=== PATIENT | male | born 1975 | race Asian ===

== ENCOUNTER 2021-04-25 08:28 | Emergency (ER) | payer OTHER ==
[2021-04-25] MEDS ORDERED: METHYLPREDNISOLONE 125 MG INJ ONE (09:33)
[2021-04-25] MEDS ORDERED: HYDROCODONE/CHLORPHEN 5 ML/OSYR ONE (09:34)
[2021-04-25] MEDS ORDERED: ALBUTEROL 2.5 MG/3 ML NEB SOL ONE (09:34)
[2021-04-25 09:48] LABS: Absolute Lymphocytes (CBC) 1.5 K/uL (0.7-4.9); Lymphocytes % 27.7 % (15.3-44.8); MPV 9.6 fL (7.6-11.3)
--- NOTE | 2021-04-25 09:57 | RAD REPORT ---
EXAM DESCRIPTION: RAD - Chest Pa And Lat (2 Views) - 04/25/2021 9:46 am CLINICAL HISTORY: COUGH COMPARISON: No comparisons FINDINGS: Lines: None. Lungs: No evidence of edema or pneumonia. Pleural: No significant pleural effusions or pneumothorax. Cardiac: The heart size is within normal limits. Bones: No acute fractures. Other: IMPRESSION: No acute cardiopulmonary disease.
[2021-04-25 10:04] LABS: BUN Blood Urea Nitrogen 6 mg/dL (7-18); Bicarbonate 29 mmol/L (21-32); Glucose Level 111 mg/dL (74-106); Sodium Level 140 mmol/L (136-145)
[2021-04-25 10:39] LABS: SARS-COV-2 RT PCR NEGATIVE (NEGATIVE)
--- NOTE | 2021-04-25 11:34 | ER ---
Nurse's Notes [facility] Name: Ashkan Ring Age: 45 yrs Sex: Male : 1975 Arrival Date: 04/25/2021 Time: 08:33 Bed 14 Private MD: Diagnosis: Cough;Respiratory syncytial virus as the cause of diseases classified elsewhere Presentation: 04/25 08:51 Chief complaint: Patient states: Cough for 2-3 months but has been getting worse over ww the past few days. Sore throat, sinus congestion, headache and fever for the past 3-4 days with diarrhea. Coronavirus screen: Vaccine status: Patient reports receiving the 2nd dose of the covid vaccine. Client denies travel out of the [place] in the last 14 days. Ebola Screen: Patient denies travel to an Ebola-affected area in the 21 days before illness onset. Initial Sepsis Screen: Does the patient meet any 2 criteria? No. Patient's initial sepsis screen is negative. Does the patient have a suspected source of infection? No. Patient's initial sepsis screen is negative. Risk Assessment: Do you want to hurt yourself or someone else? Patient reports no desire to harm self or others. Onset of symptoms is unknown. 08:51 Method Of Arrival: Ambulatory ww 08:51 Acuity: ERWIN 3 ww Triage Assessment: 08:53 General: Appears uncomfortable, Behavior is calm, cooperative. Pain: Complains of pain ww in uvula, left aspect of posterior pharynx and right aspect of posterior pharynx. EENT: Reports nasal congestion nasal discharge. Neuro: Level of Consciousness is awake, alert, obeys commands, Oriented to person, place, time, situation, Moves all extremities. Gait is steady, Speech is normal. Cardiovascular: Capillary refill Patient's skin is warm and dry. Respiratory: Reports cough that is Airway is patent Respiratory effort is even, unlabored, Respiratory pattern is regular, symmetrical. GI: Reports diarrhea. : No signs and/or symptoms were reported regarding the genitourinary system. Historical: - Allergies: 08:53 No Known Allergies; ww - Home Meds: 08:53 None [Active]; ww - PMHx: 08:53 None; ww - PSHx: 08:53 None; ww - Immunization history:: Adult Immunizations up to date. - Social history:: Smoking status: Patient denies any tobacco usage or history of. Screenin:55 Abuse screen: Denies threats or abuse. Denies injuries from another. Nutritional ww screening: No deficits noted. Tuberculosis screening: No symptoms or risk factors identified. Fall Risk None identified. Assessment: 08:54 General: Appears in no apparent distress. comfortable, well groomed, Behavior is calm, cb5 cooperative, appropriate for age. Pain: Denies pain. Neuro: No deficits noted. Level of Consciousness is awake, alert, obeys commands, Oriented to person, place, time, situation, Appropriate for age. Cardiovascular: No deficits noted. Reports None. Respiratory: No deficits noted. Respiratory: Reports cough that is patient stated he has been coughing on and off for two months, recently had covid 19, still coughing. Airway is patent Trachea midline Breath sounds are clear bilaterally. GI: No deficits noted. : No deficits noted. EENT: No deficits noted. Derm: No deficits noted. Musculoskeletal: No deficits noted. 10:15 Respiratory: Airway is patent Trachea midline Breath sounds are clear. cb5 10:54 Reassessment: Patient and/or family updated on plan of care and expected duration. Pain cb5 level reassessed. Vital Signs: 08:51 BP 128 / 86; Pulse 84; Resp 16; Temp 98.2; Pulse Ox 100% ; Weight 68.04 kg; Height 5 ww ft. 3 in. (160.02 cm); 11:10 BP 126 / 77; Pulse 82; Resp 16; Pulse Ox 100% ; Pain 0/10; cb5 12:10 BP 128 / 78; Pulse 80; Resp 16; Temp 98.6; Pulse Ox 99% ; Pain 0/10; cb5 08:51 Body Mass Index 26.57 (68.04 kg, 160.02 cm) ww ED Course: 08:33 Patient arrived in ED. ds1 08:52 Suman Dobbins NP is PHCP. pm1 08:52 Angelito Davis MD is Attending Physician. pm1 08:53 Imelda Bah, SAV is Primary Nurse. cb5 08:53 Triage completed. ww 08:53 Arm band placed on right wrist. ww 08:58 Bed in low position. Call light in reach. Side rails up X 1. cb5 08:58 No provider procedures requiring assistance completed. cb5 09:40 Inserted saline lock: 20 gauge in right antecubital area, using aseptic technique. dh4 Blood collected. 09:45 Chest Pa And Lat (2 Views) XRAY In Process Unspecified. EDMS 10:20 Strep Sent. ww 10:20 CBC with Diff Sent. ww 11:48 Notified Nurse Practitioner and/or Physician Recruiting Team Lead of a critical lab result(s), RSV ll1 positive. 12:22 IV discontinued. cb5 Administered Medications: 09:35 Drug: Tussionex Pennkinetic ER (chlorpheniramine-hydrocodone) Suspension 5 ml Route: PO;cb5 09:35 Drug: SOLU-Medrol (methylPrednisoLONE) 125 mg Route: IVP; Site: right antecubital; cb5 09:39 Drug: Albuterol 2.5 mg Route: Inhalation; cb5 Outcome: 11:34 Discharge ordered by MD. pm1 12:21 Discharged to home ambulatory. cb5 12:21 Condition: stable 12:21 Discharge instructions given to patient, family. 12:22 Patient left the ED. cb5 Signatures: Dispatcher [employer] EDMS Chely Loera ds1 Suman Dobbins, JANET PARK GUIDE pm1 Rich Fernandez dh4 [place], SAV RN ll1 Marisol Weaver, RN RN ww Imelda Bah, RN RN cb5
--- NOTE | 2021-04-25 11:34 | EDPHYS ---
Physician Documentation [facility] Name: Ashkan Ring Age: 45 yrs Sex: Male : 1975 Arrival Date: 04/25/2021 Time: 08:33 Bed 14 Private MD: ED Physician Angelito Davis HPI: 04/25 09:26 This 45 yrs old Male presents to ER via Ambulatory with complaints of Cough. pm1 09:26 The patient or guardian reports cough. Onset: The symptoms/episode began/occurred 2.5 pm1 month(s) ago. Severity of symptoms: in the emergency department the symptoms are actually worse, Since yesterday. Modifying factors: The symptoms are alleviated by nothing, the symptoms are aggravated by nothing. Associated signs and symptoms: Pertinent positives: chest pain, with cough, with breathing, sore throat, Loose stool, Pertinent negatives: diarrhea, ear ache, fever, vomiting. The patient has not recently seen a physician. Patient with cough for 2.5 weeks however last night onset wheezing that made him concerned to come in to get evaluated. He reports that Claritin D usually resolves his cough and congestion in 3 days. Historical: - Allergies: 08:53 No Known Allergies; ww - Home Meds: 08:53 None [Active]; ww - PMHx: 08:53 None; ww - PSHx: 08:53 None; ww - Immunization history:: Adult Immunizations up to date. - Social history:: Smoking status: Patient denies any tobacco usage or history of. ROS: 09:26 Constitutional: Negative for fever, chills, and weight loss. pm1 09:26 Neck: Negative for injury, pain, and swelling, Cardiovascular: Negative for chest pain, palpitations, and edema. 09:26 Abdomen/GI: Negative for abdominal pain, nausea, vomiting, diarrhea, and constipation, Back: Negative for injury and pain, MS/Extremity: Negative for injury and deformity, Skin: Negative for injury, rash, and discoloration, Neuro: Negative for headache, weakness, numbness, tingling, and seizure. 09:26 ENT: Positive for sore throat, Negative for drainage from ear(s), ear pain. 09:26 Respiratory: Positive for cough, Negative for shortness of breath. 09:26 All other systems are negative. Exam: 09:26 Constitutional: This is a well developed, well nourished patient who is awake, alert, pm1 and in no acute distress. Head/Face: Normocephalic, atraumatic. Eyes: Pupils equal round and reactive to light, extra-ocular motions intact. Lids and lashes normal. Conjunctiva and sclera are non-icteric and not injected. Cornea within normal limits. Periorbital areas with no swelling, redness, or edema. Cardiovascular: Regular rate and rhythm with a normal S1 and S2. No gallops, murmurs, or rubs. Normal PMI, no JVD. No pulse deficits. Respiratory: Lungs have equal breath sounds bilaterally, clear to auscultation and percussion. No rales, rhonchi or wheezes noted. No increased work of breathing, no retractions or nasal flaring. 09:26 Back: No spinal tenderness. No costovertebral tenderness. Full range of motion. Skin: Warm, dry with normal turgor. Normal color with no rashes, no lesions, and no evidence of cellulitis. MS/ Extremity: Pulses equal, no cyanosis. Neurovascular intact. Full, normal range of motion. 09:26 ENT: Exam is negative for acute changes, Mouth: no acute changes, Lips: normal, moist, Oral mucosa: normal, pink and intact, moist. 09:26 Abdomen/GI: Exam negative for acute changes, Inspection: abdomen appears normal, Palpation: abdomen is soft and non-tender, in all quadrants. 09:26 Neuro: Exam negative for acute changes, Orientation: is normal, Mentation: is normal, Motor: is normal, moves all fours. Vital Signs: 08:51 BP 128 / 86; Pulse 84; Resp 16; Temp 98.2; Pulse Ox 100% ; Weight 68.04 kg; Height 5 ww ft. 3 in. (160.02 cm); 11:10 BP 126 / 77; Pulse 82; Resp 16; Pulse Ox 100% ; Pain 0/10; cb5 12:10 BP 128 / 78; Pulse 80; Resp 16; Temp 98.6; Pulse Ox 99% ; Pain 0/10; cb5 08:51 Body Mass Index 26.57 (68.04 kg, 160.02 cm) MDM: 08:55 Patient medically screened. [facility] 11:33 Data reviewed: vital signs. Data interpreted: Pulse oximetry: on room air is 100 %. pm1 Interpretation: normal. Counseling: I had a detailed discussion with the patient and/or guardian regarding: the historical points, exam findings, and any diagnostic results supporting the discharge/admit diagnosis, lab results, radiology results, the need for outpatient follow up, to return to the emergency department if symptoms worsen or persist or if there are any questions or concerns that arise at home. 04/25 09:14 Order name: [place] Screen; Complete Time: 10:12 EDMS 04/25 09:25 Order name: CBC with Diff pm1 04/25 09:25 Order name: BMP; Complete Time: 10:12 pm1 04/25 09:17 Order name: Chest Pa And Lat (2 Views) XRAY; Complete Time: 10:12 pm1 04/25 09:26 Order name: CBC with Automated Diff; Complete Time: 10:12 EDMS 04/25 09:35 Order name: Strep pm1 04/25 09:36 Order name: Group A Streptococcus Rapid Sc; Complete Time: 10:52 EDMS 04/25 10:16 Order name: Throat Culture EDMS 04/25 11:50 Order name: COVID-19/FLU A+B/RSV; Complete Time: 15:19 EDMS 04/25 09:16 Order name: IV Saline Lock; Complete Time: 09:23 pm1 Administered Medications: 09:35 Drug: Tussionex Pennkinetic ER (chlorpheniramine-hydrocodone) Suspension 5 ml Route: PO;cb5 09:35 Drug: SOLU-Medrol (methylPrednisoLONE) 125 mg Route: IVP; Site: right antecubital; cb5 09:39 Drug: Albuterol 2.5 mg Route: Inhalation; cb5 Disposition: 18:30 Co-signature as Attending Physician, Angelito Davis MD I agree with the assessment and gerard plan of care. Disposition Summary: 04/25/21 11:34 Discharge Ordered Location: Home pm1 Problem: new pm1 Symptoms: have improved pm1 Condition: Stable pm1 Diagnosis - Cough pm1 - Respiratory syncytial virus as the cause of diseases classified elsewhere pm1 Followup: pm1 - With: Emergency Department - When: As needed - Reason: Worsening of condition Followup: pm1 - With: Private Physician - When: 2 - 3 days - Reason: Recheck today's complaints, Continuance of care, Re-evaluation by your physician Discharge Instructions: - Discharge Summary Sheet pm1 - Allergies, Adult pm1 - Cough, Adult pm1 - Respiratory Syncytial Virus Infection, Pediatric pm1 Forms: - Medication Reconciliation Form pm1 - Thank You Letter pm1 - Antibiotic Education pm1 - Prescription Opioid Use pm1 Prescriptions: - Ventolin HFA 90 mcg/actuation Inhalation HFA aerosol inhaler - inhale 1 puff by INHALATION route every 4-6 hours As needed; 1 Inhaler; pm1 Refills: 0, Product Selection Permitted - Medrol (Ameya) 4 mg Oral Tablets, Dose Pack - take 1 tablet by ORAL route as directed - follow package instructions; 1 pm1 packet; Refills: 0, Product Selection Permitted - Guaifenesin AC 10-100 mg/5 mL Oral Liquid - take 10 milliliters by ORAL route every 4 hours As needed; 240 milliliter; pm1 Refills: 0, Product Selection Permitted Signatures: Dispatcher [employer] EDMS Angelito Davis MD MD cha Marinas, Patrick, NP INSTRUCTOR PHYSICAL pm1 Marisol Weaver RN RN ww Imelda Bah, RN RN cb5 Corrections: (The following items were deleted from the chart) 09:17 09:14 [place] Screen ordered. EDMS EDMS 09:20 09:14 Chest Pa And Lat (2 Views)+[id number] ordered. EDMS EDMS 11:50 09:14 COVID-19/FLU A+B ordered. EDMS EDMS 11:50 10:52 COVID-19/FLU A+B reviewed. pm1 EDMS
[2021-04-25 12:41] VITALS: BP 128/78; TEMP 98.6; O2SAT 99
== END 2021-04-25 12:22 | disposition home or self-care (01) ==
LOC: ER 08:28
DX: R05.9 Cough, unspecified (principal); B97.4 Respiratory syncytial virus as the cause of diseases classified elsewhere; Z20.822 Contact with and (suspected) exposure to COVID-19
CPT/HCPCS: 87070; 85025; 80048; 36415; 86308; 87081; 0241U; 71046; 96374; 99284; J2930